=== PATIENT | female | born 1950 | race Asian ===

== ENCOUNTER → 2017-04-03 | Outpatient (CLI) | payer OTHER ==
[~2017-04-03] MED LIST: ALBU18HF; CLON-364 PO; ENAL10TA PO; FLUO20CA8 PO; FURO-93 PO; GLIP5TAB10 PO; HYDR12.53; METF-162 PO; METF500T4 PO; METO-93; METO50TA82 PO; MORP15TA3 PO; NITR0.4T28 SL; SIMV20TA3 PO; SIMVASTATIN PO; THYR60TA PO; TIZA2CAP PO; ZOLP10TA5 PO
== END | disposition home or self-care (01) ==
LOC: CFH 08:52
PROVIDERS: ATTEND Internal Medicine Cardiovascular Disease
DX: I35.8 Other nonrheumatic aortic valve disorders (principal); I10 Essential (primary) hypertension; E78.5 Hyperlipidemia, unspecified; I25.10 Atherosclerotic heart disease of native coronary artery without angina pectoris; E11.9 Type 2 diabetes mellitus without complications
CPT/HCPCS: 93306

== ENCOUNTER → 2017-04-15 | Outpatient (CLI) | payer OTHER ==
[~2017-04-15] MED LIST changes: +REGADENOSON 0.4 MG/5 ML SYRINGE ONE
== END | disposition home or self-care (01) ==
LOC: RAD 07:46
PROVIDERS: ATTEND Internal Medicine Cardiovascular Disease
DX: I21.9 Acute myocardial infarction, unspecified (principal); I25.89 Other forms of chronic ischemic heart disease; I25.10 Atherosclerotic heart disease of native coronary artery without angina pectoris; I10 Essential (primary) hypertension
CPT/HCPCS: 78452; 93017; A9502; J2785

== ENCOUNTER 2017-06-02 10:47 | Observation (INO) | payer OTHER ==
[~2017-06-02] VITALS: Ht 157.5 cm; Wt 60.7 kg
[~2017-06-02 10:47] MED LIST changes: -REGADENOSON 0.4 MG/5 ML SYRINGE ONE
[2017-06-02 12:05] VITALS: BP 121/61
[2017-06-02] MEDS ORDERED: AMLO5TAB2 PO (12:19)
[2017-06-02] MEDS ORDERED: THYR90TA PO (12:20)
[2017-06-02] MEDS ORDERED: CLON0.1T PO (12:22)
[2017-06-02] MEDS ORDERED: HYDR-879 PO (12:23)
[2017-06-02] MEDS ORDERED: FENO145T13 PO (12:23)
[2017-06-02] MEDS ORDERED: ASPI-621 PO (12:25)
[2017-06-02] MEDS ORDERED: ASPIRIN 325 MG TABLET EC PO ONE (12:30)
[2017-06-02 12:53] LABS: BASOPHILS # (AUTO) 0.06 x10^3/uL (0-0.1); BASOPHILS % (AUTO) 1 % (0-1); EOSINOPHILS # (AUTO) 0.27 x10^3/uL (0-0.4); EOSINOPHILS % (AUTO) 4 % (1-7); LYMPHOCYTES % (AUTO) 30 % (22-44); MD NO; MEAN CORPUSCULAR HEMOGLOBIN 29.2 pg (27.0-34.8); MEAN CORPUSCULAR HGB CONC 34.8 g/dL (32.4-35.8); MEAN CORPUSCULAR VOLUME 83.8 fL (80-100); MEAN PLATELET VOLUME 7.5 fL (7.4-10.4); MONOCYTES # (AUTO) 0.55 x10^3/uL (0.2-0.8); MONOCYTES % (AUTO) 7 % (2-9); NEUTROPHILS # (AUTO) 4.39 x10^3/uL (1.8-6.8); NEUTROPHILS % (AUTO) 58 % (42-75); PLATELET COUNT 259 x10^3/uL (130-400); RED BLOOD COUNT 4.81 x10^6/uL (3.82-5.3); RED CELL DISTRIBUTION WIDTH 12.6 % (9.6-15.2)
[2017-06-02] MEDS ORDERED: LIDOCAINE 2%, 20ML ONE (13:37)
[2017-06-02] MEDS ORDERED: FENTANYL PF 100 MCG/2ML ONE (13:37)
[2017-06-02] MEDS ORDERED: TICAGRELOR 90 MG TABLET ONE (13:37)
[2017-06-02] MEDS ORDERED: VERAPAMIL 2.5 MG/ML, 2ML ONE (13:37)
[2017-06-02] MEDS ORDERED: BIVALIRUDIN 250 MG ONE (13:37)
[2017-06-02] MEDS ORDERED: MIDAZOLAM 1 MG/ML, 5ML ONE (13:37)
[2017-06-02] MEDS ORDERED: HEPARIN 1,000 UNITS/ML, 10ML ONE (13:37)
[2017-06-02] MEDS ORDERED: PRASUGREL 10 MG TABLET ONE (14:51)
[2017-06-02] MEDS ORDERED: BIVALIRUDIN 250 MG in DEXTROSE 5% 50 ML IV SCH (15:00)
[2017-06-02] MEDS ORDERED: ACETAMINOPHEN 325 MG TABLET PO PRN (15:00)
[2017-06-02] MEDS ORDERED: ZOLPIDEM 5MG TABLET PO PRN (15:00)
[2017-06-02] MEDS ORDERED: ONDANSETRON 2MG/ML, 2ML IVPush PRN (15:00)
[2017-06-02] MEDS: PLEASE ENTER HEIGHT AND WEIGHT MC SCH ×2 (15:32→20:30)
[2017-06-02 15:35] VITALS: BP 116/61
[2017-06-02] MEDS: metFORMIN 500 MG TABLET PO SCH (16:16)
[2017-06-02] MEDS: SODIUM CHLORIDE 0.9% 1,000 ML IV SCH ×2 (17:45→23:00)
[2017-06-02] MEDS: HYDROcodone/APAP 10/325 MG TABLET PO PRN (18:37)
[2017-06-02 20:20] VITALS: BP 143/71
[2017-06-02] MEDS: METOPROLOL TARTRATE 50 MG TABLET PO SCH (20:21)
[2017-06-02] MEDS ORDERED: SIMVASTATIN 20 MG TABLET PO SCH (21:00)
[2017-06-02] MEDS ORDERED: ZOLPIDEM 10MG TABLET PO SCH (21:00)
[2017-06-02] MEDS ORDERED: TIZANIDINE 2MG TABLET PO SCH (21:00)
[2017-06-03 02:11] VITALS: BP 135/72
[2017-06-03] MEDS: HYDROcodone/APAP 10/325 MG TABLET PO PRN ×2 (03:39→10:41)
[2017-06-03] MEDS: PLEASE ENTER HEIGHT AND WEIGHT MC SCH (04:30)
[2017-06-03 05:22] LABS: ALBUMIN 3.7 g/dL (3.4-5.0); ANION GAP 7 mmol/L (5-15); CALCIUM 8.7 mg/dL (8.5-10.1); CHLORIDE 103 mmol/L (98-107); CREATININE 0.86 mg/dL (0.55-1.02)
[2017-06-03 06:50] VITALS: BP 126/73
[2017-06-03] MEDS: METOPROLOL TARTRATE 50 MG TABLET PO SCH (07:54)
[2017-06-03] MEDS: metFORMIN 500 MG TABLET PO SCH (07:54)
[2017-06-03] MEDS: SODIUM CHLORIDE 0.9% 1,000 ML IV SCH (08:01)
[2017-06-03] MEDS ORDERED: PRAS10TA4 PO (08:20)
[2017-06-03] MEDS ORDERED: AMLODIPINE 5 MG TABLET PO SCH (09:00)
[2017-06-03] MEDS ORDERED: ASPIRIN 81 MG TABLET EC PO SCH (09:00)
[2017-06-03] MEDS ORDERED: PRASUGREL 10 MG TABLET PO SCH (09:00)
[2017-06-03] MEDS ORDERED: FENOFIBRATE 145 MG TABLET PO SCH (09:00)
[2017-06-03] MEDS ORDERED: THYROID 30 MG TABLET PO SCH (09:00)
[2017-06-03] MEDS ORDERED: FLUOXETINE HCL 20 MG CAPSULE PO SCH (09:00)
[2017-06-03] MEDS ORDERED: ENALAPRIL 20MG TABLET PO SCH (09:00)
[2017-06-03] MEDS ORDERED: FLU VACC QS2017-18 (36MOS+) UP/PF 0.5 ML IM-VACC ONE (11:00)
== END 2017-06-03 11:28 | disposition home or self-care (01) ==
LOC: CACL 10:47 → ORIP 15:00 → 5SO 15:12 → DCLOUNGE 06-03 11:18
PROVIDERS: ADMIT Internal Medicine Cardiovascular Disease; ATTEND Internal Medicine Cardiovascular Disease
DX: I25.110 Atherosclerotic heart disease of native coronary artery with unstable angina pectoris (principal); R00.2 Palpitations; R94.39 Abnormal result of other cardiovascular function study; I10 Essential (primary) hypertension; E11.9 Type 2 diabetes mellitus without complications; E78.2 Mixed hyperlipidemia; Z23 Encounter for immunization
CPT/HCPCS: 36415; 80048; 82040; 85025; 90471; 90686; 93005; 93458; 99156; 99157; C1725; C1769; C1874; C1887; C1894; C9600; G0378; J0583; J1644; J2250; J3010; J3490; Q9967

== ENCOUNTER → 2017-09-30 | Outpatient (CLI) | payer OTHER ==
[~2017-09-30] MED LIST changes: +AMLO5TAB2 PO; +ASPI-621 PO; +CLON0.1T PO; +FENO145T30 PO; +HYDR-879 PO; -METF500T4 PO; +METF500T5 PO; +PRAS10TA4 PO; +THYR90TA PO
== END | disposition home or self-care (01) ==
LOC: CVU 09:27
PROVIDERS: ATTEND Internal Medicine Cardiovascular Disease
DX: I65.23 Occlusion and stenosis of bilateral carotid arteries (principal); I25.10 Atherosclerotic heart disease of native coronary artery without angina pectoris; E78.2 Mixed hyperlipidemia; E11.9 Type 2 diabetes mellitus without complications; I25.2 Old myocardial infarction
CPT/HCPCS: 93880

== ENCOUNTER 2019-02-03 11:45 | Emergency (ER) | payer OTHER ==
[~2019-02-03] VITALS: Ht 157.5 cm; Wt 61.0 kg
[~2019-02-03 11:45] MED LIST changes: +AMLO-150 PO; -AMLO5TAB2 PO; -ASPI-621 PO; +ASPI81TA45 PO; -CLON-364 PO; -CLON0.1T PO; +CLON0.1T22 PO; +CLON0.5T11 PO; +HYDR-3622 PO; -HYDR-879 PO; +HYDR12.517; -HYDR12.53; +METF500T17 PO; -METF500T5 PO; +MORP-29 PO; -MORP15TA3 PO
--- NOTE | 2019-02-03 11:49 | NUR ---
PATIENT BROUGHT IN BY CORTNEY WITH CHIEF COMPLAINT OF SANCHEZ, NECK, LOW BACK AND BILAT RIB PAIN AFTER SLIPPING ON ICE YESTERDAY MORNING. PATIENT DENIES LOC. CMS INTACT & NO NEURO DEFICITS.
[2019-02-03] MEDS ORDERED: CLOP75TA52 PO (11:58)
--- NOTE | 2019-02-03 12:02 | NUR ---
REPORT FROM [facility]
[2019-02-03] MEDS ORDERED: ONDANSETRON 2MG/ML, 2ML ONE (12:30)
[2019-02-03] MEDS ORDERED: ONDANSETRON 2MG/ML, 2ML IVPush ONE (12:30)
[2019-02-03] MEDS ORDERED: MORPHINE SULFATE 4 MG/ML, 1ML IVPush PRN (12:30)
[2019-02-03] MEDS ORDERED: SODIUM CHLORIDE FLUSH 10ML SYR IVF ONE (12:30)
[2019-02-03] MEDS ORDERED: MORPHINE SULFATE 4 MG/ML, 1ML ONE (12:31)
[2019-02-03 12:54] VITALS: BP 142/61
--- NOTE | 2019-02-03 12:54 | NUR ---
MEDICATED FOR PAIN. PT STATES HER PAIN IS 7/10. VS STABLE. REPOSITIONED.
--- NOTE | 2019-02-03 13:46 | NUR ---
Patient/Caregiver given discharge instructions and they have confirmed that they understand the instructions. Patient ambulatory with steady gait.
== END 2019-02-03 13:51 | disposition home or self-care (01) ==
LOC: ED 13:31
DX: G89.11 Acute pain due to trauma (principal); M54.2 Cervicalgia; R51 Headache; E11.9 Type 2 diabetes mellitus without complications; I25.10 Atherosclerotic heart disease of native coronary artery without angina pectoris; E78.5 Hyperlipidemia, unspecified; I25.2 Old myocardial infarction; I10 Essential (primary) hypertension; W01.0XXA Fall on same level from slipping, tripping and stumbling without subsequent striking against object, initial encounter; Y93.89 Activity, other specified; Y92.410 Unspecified street and highway as the place of occurrence of the external cause; Y99.8 Other external cause status
CPT/HCPCS: 70450; 72020; 72050; 96374; 96375; 99284; J2270; J2405